=== PATIENT | female | born 1945 | race African-American/Black ===

== ENCOUNTER → 2016-12-31 | Outpatient (CLI) | payer OTHER | LOC: RAD 08:01 | DX: Z12.31 Encounter for screening mammogram for malignant neoplasm of breast (principal) ==

== ENCOUNTER 2021-01-24 05:28 | Emergency (ER) | payer MEDICARE ==
[~2021-01-24] VITALS: Ht 167.6 cm; Wt 63.5 kg
[2021-01-24] MEDS ORDERED: ASA81BEC PO (07:53)
[2021-01-24] MEDS ORDERED: NORVASC5 MG PO (07:53)
[2021-01-24] MEDS ORDERED: LIPITOR10 MG PO (07:53)
[2021-01-24] MEDS ORDERED: ELIQUIS5 MG PO (07:53)
[2021-01-24] MEDS ORDERED: PROTONIX40 M2 PO (07:53)
[2021-01-24] MEDS ORDERED: REMERON15 M2 PO (07:54)
== END 2021-01-24 11:11 ==
LOC: ER 05:28
DX: I46.9 Cardiac arrest, cause unspecified (principal); Z20.822 Contact with and (suspected) exposure to COVID-19; Z90.710 Acquired absence of both cervix and uterus